=== PATIENT | female | born 1970 | race Caucasian/White ===

== ENCOUNTER 2017-02-04 06:32 | Day surgery (SDC) | payer BC ==
[~2017-02-04 06:32] MED LIST: Dexamethasone 4 MG/ML 5 ML MDV ONE; HYDROmorphone 1 MG/ML Syringe ONE; Ketorolac 30 MG/ML SDV ONE; Lactated Ringers 1,000 ML ONE; Lidocaine 1% 4 ML ONE; Midazolam 1 MG/ML 2 ML SDV ONE; Ondansetron 4 MG/2 ML SDV ONE; Propofol 200 MG/20 ML SDV ONE; Rocuronium 50 MG/5 ML Vial ONE; ceFAZolin 1 GM Vial ONE; fentaNYL 250 MCG/5 ML SDV ONE
[2017-02-04] MEDS ORDERED: Sodium Chloride 0.9% 10 ML Syringe FLUSH PRN (07:00)
[2017-02-04] MEDS ORDERED: Lidocaine 1%/Sod Bicarbonate in NS 8.4% 1 ML Syringe PRN (07:00)
[2017-02-04] MEDS ORDERED: Sodium Chloride 0.9% 50 ML SDV ONE (07:03)
[2017-02-04] MEDS ORDERED: Lidocaine 1% with EPINEPHrine 1:100,000 20 ML MDV ONE (07:03)
[2017-02-04] MEDS: Lactated Ringers 1,000 ML IV SCH ×2 (07:10→12:55)
--- NOTE | 2017-02-04 07:27 | PCM.PREANE ---
Preanesthetic Assessment - Anesthesia/Transfusion/Family Hx Anesthesia History: Prior Anesthesia Without Reaction Family History of Anesthesia Reaction: No Transfusion History: No Prior Transfusion(s) Intubation History: Unknown - Review of Systems General: No Symptoms, Fatigue Pulmonary: No Symptoms (history of asthma not treatment needed for 5-6 years.) Cardiovascular: No Symptoms (History of HTN), Lightheadedness (postural changes / exertion.) Gastrointestinal: No Symptoms (GERD/history of chron's disease), Decreased Appetite Neurological: No Symptoms, Headache (history of migraines/4/10 headache noted today) Other: Reports: Easy Bruising, Sinus Problem (allergic rhinitis), Neck Pain ( neck tenderness with headache.) - Physical Assessment NPO Status Date: 02/03/17 NPO Status Time: 21:30 Pulse: 102 O2 Sat by Pulse Oximetry: 97 Respiratory Rate: 16 Blood Pressure: 153/90 Temperature: 37.0 C Height: 1.7 m Weight: 108 kg ASA Class: 2 Mental Status: Alert & Oriented x3 Airway Class: Mallampati = 2 Dentition: Reports: Normal Dentition, Broken Tooth/Teeth, Caries Thyro-Mental Finger Breadths: 3 Mouth Opening Finger Breadths: 3 ROM/Head Extension: Full Lungs: Clear to Auscultation, Normal Respiratory Effort Cardiovascular: Regular Rate, Regular Rhythm, No Murmurs - Lab Values: Laboratory Last Values WBC 9.56 K/mm3 (3.98-10.04) 02/02/17 13:25 RBC 4.54 M/mm3 (3.98-5.22) 02/02/17 13:25 Hgb 13.5 gm/L (11.2-15.7) 02/02/17 13:25 Hct 39.7 % (34.1-44.9) 02/02/17 13:25 MCV 87.4 fl (79.4-94.8) 02/02/17 13:25 MCH 29.7 pg (25.6-32.2) 02/02/17 13:25 MCHC 34.0 g/dl (32.2-35.5) 02/02/17 13:25 RDW Std Deviation 39.0 fL (36.4-46.3) 02/02/17 13:25 Plt Count 382 K/mm3 (182-369) H 02/02/17 13:25 MPV 9.8 fl (9.4-12.3) 02/02/17 13:25 Neut % (Auto) 61.6 % (34.0-71.1) 02/02/17 13:25 Lymph % (Auto) 28.9 % (19.3-51.7) 02/02/17 13:25 Jerome % (Auto) 6.6 % (4.7-12.5) 02/02/17 13:25 Eos % (Auto) 1.9 (0.7-5.8) 02/02/17 13:25 Baso % (Auto) 0.7 % (0.1-1.2) 02/02/17 13:25 Neut # (Auto) 5.89 K/mm3 (1.56-6.13) 02/02/17 13:25 Lymph # (Auto) 2.76 K/mm3 (1.18-3.74) 02/02/17 13:25 Jerome # (Auto) 0.63 K/mm3 (0.24-0.36) H 02/02/17 13:25 Eos # (Auto) 0.18 K/mm3 (0.04-0.36) 02/02/17 13:25 Baso # (Auto) 0.07 K/mm3 (0.01-0.08) 02/02/17 13:25 Sodium 136 mEq/L (136-145) 02/02/17 13:25 Potassium 3.9 mEq/L (3.5-5.1) 02/02/17 13:25 Chloride 106 mEq/L (98-107) 02/02/17 13:25 Carbon Dioxide 20 mEq/L (21-32) L 02/02/17 13:25 Anion Gap 13.9 (5-15) 02/02/17 13:25 BUN 9 mg/dL (7-18) 02/02/17 13:25 Creatinine 1.0 mg/dL (0.55-1.02) 02/02/17 13:25 Est Cr Clr Drug Dosing TNP 02/02/17 13:25 Estimated GFR (MDRD) 60 mL/min (>60) 02/02/17 13:25 BUN/Creatinine Ratio 9.0 (14-18) L 02/02/17 13:25 Glucose 99 mg/dL (74-106) 02/02/17 13:25 Calcium 9.1 mg/dL (8.5-10.1) 02/02/17 13:25 Total Bilirubin 0.3 mg/dL (0.2-1.0) 02/02/17 13:25 AST 27 U/L (15-37) 02/02/17 13:25 ALT 32 U/L (14-59) 02/02/17 13:25 Alkaline Phosphatase 79 U/L (46-116) 02/02/17 13:25 Total Protein 7.9 g/dl (6.4-8.2) 02/02/17 13:25 Albumin 3.3 g/dl (3.4-5.0) L 02/02/17 13:25 Globulin 4.6 gm/dL 02/02/17 13:25 Albumin/Globulin Ratio 0.7 (1-2) L 02/02/17 13:25 Urine Color Red (Yellow) H 02/02/17 13:25 Urine Appearance Slt cloudy (Clear) H 02/02/17 13:25 Urine pH 6.0 (5.0-8.0) 02/02/17 13:25 Ur Specific [place] 1.015 (1.005-1.030) 02/02/17 13:25 Urine Protein 2+ (Negative) H 02/02/17 13:25 Urine Glucose (UA) Negative (Negative) 02/02/17 13:25 Urine Ketones Negative (Negative) 02/02/17 13:25 Urine Occult Blood 3+ (Negative) H 02/02/17 13:25 Urine Nitrite Negative (Negative) 02/02/17 13:25 Urine Bilirubin 1+ (Negative) H 02/02/17 13:25 Urine Urobilinogen 0.2 (0.2-1.0) 02/02/17 13:25 Ur Leukocyte Esterase Trace (Negative) H 02/02/17 13:25 Urine HCG, Qual Negative (NEGATIVE) 02/02/17 13:25 Blood Type A POSITIVE 02/02/17 13:25 Gel Antibody Screen Negative 02/02/17 13:25 Above labs reviewed and noted and within acceptable ranges to proceed with scheduled procedure. - Allergies Allergies/Adverse Reactions: Allergies Allergy/AdvReac Type Severity Reaction Status Date / Time levofloxacin [From Levaquin] Allergy Rash Verified 02/03/17 14:10 promethazine [From Phenergan] Allergy Hives Verified 02/03/17 14:10 shellfish derived Allergy Cannot Verified 02/03/17 14:10 Remember - Anesthesia Plan Pre-Op Medication Ordered: None - Acknowledgements Anesthesia Type Planned: General Anesthesia Pt an Appropriate Candidate for the Planned Anesthesia: Yes Alternatives and Risks of Anesthesia Discussed w Pt/Guardian: Yes Pt/Guardian Understands and Agrees with Anesthesia Plan: Yes PreAnesthesia Questionnaire HEENT History: Reports: Allergic Rhinitis, Impaired Vision Cardiovascular History: Reports: Hypertension Respiratory History: Reports: Asthma Gastrointestinal History: Reports: GERD, Other (See Below) Other Gastrointestinal History: crohn's disease Genitourinary History: Reports: None LOOM CONTROL CHAIN BUILDER History: Reports: Polycystic Ovaries, , Spontaneous , Other (See Below) Other OB/BYN History: pelvic pain, abnormal uterine bleeding, dysmenorrhea, menorrhagia, spontaneous vaginal delivery Neurological History: Reports: Headaches, Chronic, Migraines Psychiatric History: Reports: None Endocrine/Metabolic History: Reports: None Hematologic History: Reports: Anemia Immunologic History: Reports: None Oncologic (Cancer) History: Reports: None Dermatologic History: Reports: Other (See Below) Other Dermatologic History: acne, lymphadenectomy - Past Surgical History HEENT Surgical History: Reports: Tonsillectomy Cardiovascular Surgical History: Reports: None Respiratory Surgical History: Reports: None GI Surgical History: Reports: None, Appendectomy, Small Bowel Female Surgical History: Reports: Breast Reduction Male Surgical History: Reports: None Endocrine Surgical History: Reports: None Neurological Surgical History: Reports: None Musculoskeletal Surgical History: Reports: Other (See Below) Other Musculoskeletal Surgeries/Procedures:: ankle surgery, knee surgery Oncologic Surgical History: Reports: None - SUBSTANCE USE Smoking Status *Q: Never Smoker Recreational Drug Use History: No - HOME MEDS Home Medications: Home Meds Adalimumab [Humira Pen Crohn-Uc-Hs Starter] 40 mg SQ Q14D 02/03/17 [History] Multivitamin with Minerals [Multiple Vitamin] 1 tab PO DAILY 02/03/17 [History] Pantoprazole Sodium [Protonix] 40 mg PO DAILY 02/03/17 [History] Topiramate [Topamax] 100 mg PO DAILY 02/03/17 [History] - CURRENT (IN HOUSE) MEDS Current Meds: Current Medications Lactated Ringer's (Ringers, Lactated) 1,000 mls @ 125 mls/hr IV ASDIRECTED KYLE Stop: 02/04/17 23:00 Lidocaine/Sodium Bicarbonate (Buffered Lidocaine 1% In Ns 8.4%) 0.25 ml .XX ONETIME PRN PRN Reason: Prior to IV Start Stop: 02/04/17 18:00 Sodium Chloride (Saline Flush) 10 ml FLUSH ASDIRECTED PRN PRN Reason: Keep Vein Open Stop: 02/04/17 18:00 Discontinued Medications Cefazolin Sodium (Ancef) Confirm Administered Dose 2 gm .ROUTE .STK-MED ONE Stop: 02/04/17 06:29 Dexamethasone (Dexamethasone) Confirm Administered Dose 20 mg .ROUTE .STK-MED ONE Stop: 02/04/17 06:29 Fentanyl (Sublimaze) Confirm Administered Dose 250 mcg .ROUTE .STK-MED ONE Stop: 02/04/17 06:29 Hydromorphone HCl (Dilaudid) Confirm Administered Dose 1 mg .ROUTE .STK-MED ONE Stop: 02/04/17 06:30 Lidocaine HCl (Xylocaine-Mpf 1%) Confirm Administered Dose 4 mls @ as directed .ROUTE .STK-MED ONE Stop: 02/04/17 06:29 Lactated Ringer's (Ringers, Lactated) Confirm Administered Dose 1,000 mls @ as directed .ROUTE .STK-MED ONE Stop: 02/04/17 06:29 Ketorolac Tromethamine (Toradol) Confirm Administered Dose 30 mg .ROUTE .STK- MED ONE Stop: 02/04/17 06:29 Lidocaine/Epinephrine (Xylocaine 1% With Epinephrine 1:100,000) Confirm Administered Dose 20 ml .ROUTE .STK-MED ONE Stop: 02/04/17 07:04 Midazolam HCl (Versed 1 Mg/Ml) Confirm Administered Dose 2 mg .ROUTE .STK-MED ONE Stop: 02/04/17 06:29 Ondansetron HCl (Zofran) Confirm Administered Dose 4 mg .ROUTE .STK-MED ONE Stop: 02/04/17 06:29 Propofol (Diprivan 20 Ml) Confirm Administered Dose 200 mg .ROUTE .STK-MED ONE Stop: 02/04/17 06:29 Rocuronium [place] (Zemuron) Confirm Administered Dose 50 mg .ROUTE .STK-MED ONE Stop: 12/13/17 06:29 Sodium Chloride (Normal Saline) Confirm Administered Dose 50 ml .ROUTE .[facility]-MED ONE Stop: 02/04/17 07:04
[2017-02-04] MEDS ORDERED: Scopolamine 1.5 MG Transdermal Patch TRDERM ONE (07:45)
[2017-02-04] MEDS ORDERED: HYDROmorphone 0.5 MG/0.5 ML Syringe IVPUSH PRN (09:47)
[2017-02-04] MEDS ORDERED: fentaNYL 100 MCG/2 ML SDV IVPUSH PRN (09:47)
[2017-02-04] MEDS ORDERED: Midazolam 1 MG/ML 2 ML SDV IVPUSH PRN (09:47)
[2017-02-04] MEDS ORDERED: Metoclopramide 10 MG/2 ML SDV IV PRN (09:47)
[2017-02-04] MEDS ORDERED: diphenhydrAMINE 50 MG/ML SDV IVPUSH PRN (09:47)
[2017-02-04] MEDS ORDERED: ePHEDrine 50 MG/ML SDV IVPUSH PRN (09:47)
[2017-02-04] MEDS ORDERED: Ondansetron 4 MG/2 ML SDV IVPUSH PRN ×2 (09:47→10:35)
[2017-02-04] MEDS ORDERED: Propofol 200 MG/20 ML SDV ONE (09:49)
[2017-02-04] MEDS ORDERED: HYDROmorphone 1 MG/ML Syringe ONE (10:06)
[2017-02-04] MEDS ORDERED: Neostigmine Methylsulfate 1 MG/ML 5 ML Syringe ONE (10:10)
[2017-02-04] MEDS ORDERED: Labetalol 100 MG/20 ML MDV ONE (10:13)
[2017-02-04] MEDS ORDERED: Acetaminophen/oxyCODONE 325-5 MG Tab PO PRN (10:35)
--- NOTE | 2017-02-04 10:40 | PCM.OPNOTE ---
- General Post-Op/Procedure Note Date of Surgery/Procedure: 02/04/17 Operative Procedure(s): Total vaginal hysterectomy with bilateral salpingectomy Findings: Uterus is upper limits normal size. Bilateral ovaries had benign appearing cysts present within. Fallopian tubes were unremarkable. Pre Op Diagnosis: 1. Menorrhagia. 2. Dysmenorrhea. 3. Irregular menses. Post-Op Diagnosis: Same Anesthesia Technique: General ET Tube Other Anesthesia Type: Lidocaine quarter percent with [id number] mL total Primary Surgeon: Johnny Salcedo Secondary Surgeon: Jutsin Salguero Anesthesia Provider: Leena Amos Glassware Maker Demonstrator: Frankie Russ Reason Glassware Maker Demonstrator Was Necessary: Retraction, patient safety, quality of care. Role of Glassware Maker Demonstrator: Retraction Pathology: Uterus and bilateral fallopian tubes sent in one container Fluid Replacement, Intraop: 1,000 EBL in mLs: 200 Complications: None Condition: Good Free Text/Narrative:: Surgery duration: 41 minutes Procedure: The patient was placed in supine position on the operating table. General endotracheal anesthesia was accomplished. After positioning, and adequate prep and drape, the procedure was then performed. Sterile speculum was placed in the vagina and cervix was visualized. Cervix was injected with lidocaine quarter percent with [id number] mL used. A full circumference incision was made in the cervical epithelium. The bladder was pushed well back off cervix. Posterior cul-de-sac was then entered sharply without problems. Left uterosacral was crossclamped with a Enseal vessel closure system. The left uterosacral and then the right uterosacral ligament pedicles were developed using the Enseal system. The anterior cul-de-sac was then entered without problems and the uterine vasculature, cardinal ligament and broad ligament then developed using Enseal vessel closure system. The uterus was inverted at this time and upper broad ligament fallopian tube pedicles were crossclamped with Caio clamps. Specimen was totally removed. Both these pedicles were then secured with a Caio stitch of #1 Vicryl. Left and right fallopian tube was normal in appearance.. Using Enseal vessel closure system each of the tubes was then removed and sent with the specimen. Both ovaries were removed per patient's desire. The patient was found to be hemostatically intact at this time. A pursestring suture was and placed in the peritoneal cavity externalizing pedicles in case of bleeding. Vaginal cuff was sutured for hemostatic reasons with a running locked suture of 0 Monocryl from the 2 o'clock position to the 10 o'clock position posteriorly. Vaginal cuff was then closed from right to left side with a running locked suture of 0 Monocryl. Patient was returned to supine position and awakened from general endotracheal anesthesia. She tolerated the procedure was then left the operating room in satisfactory condition.
[2017-02-04] MEDS ORDERED: Labetalol 100 MG/20 ML MDV IVPUSH PRN (10:48)
--- NOTE | 2017-02-04 10:48 | PCM.POSTAN ---
POST ANESTHESIA ASSESSMENT - MENTAL STATUS Mental Status: Alert - VITAL SIGNS Pulse Rate: 104 SaO2: 98 Resp Rate: 10 Blood Pressure: 154/90 Temperature: 36.9 C - RESPIRATORY Respiratory Status: Respiratory Rate WNL, Airway Patent, O2 Saturation Stable, Supplemental Oxygen - CARDIOVASCULAR CV Status: Pulse Rate WNL, Blood Pressure Stable - GASTROINTESTINAL GI Status: No Symptoms - POST OP HYDRATION Hydration Status: Adequate & Stable
--- NOTE | 2017-02-04 12:11 | PCM48HPAN ---
Post Anesthesia Note - EVALUATION WITHIN 48HRS OF ANESTHETIC Vital Signs in Normal Range: Yes Patient Participated in Evaluation: Yes Respiratory Function Stable: Yes Airway Patent: Yes Cardiovascular Function Stable: Yes Hydration Status Stable: Yes Pain Control Satisfactory: Yes Nausea and Vomiting Control Satisfactory: Yes Mental Status Recovered: Yes
== END 2017-02-04 15:00 | disposition home or self-care (01) ==
LOC: JD.SDS 06:32
PROVIDERS: ATTEND Obstetrics & Gynecology
DX: N84.0 Polyp of corpus uteri (principal); N80.0 Endometriosis of uterus; R23.4 Changes in skin texture; N83.8 Other noninflammatory disorders of ovary, fallopian tube and broad ligament; I10 Essential (primary) hypertension; K21.9 Gastro-esophageal reflux disease without esophagitis; J45.909 Unspecified asthma, uncomplicated; Z88.1 Allergy status to other antibiotic agents; Z88.8 Allergy status to other drugs, medicaments and biological substances; Z91.013 Allergy to seafood; Z79.899 Other long term (current) drug therapy
CPT/HCPCS: 36415; 58262; 80053; 81003; 81025; 85025; 86850; 86900; 86901; 93005; A9270; J0690; J1100; J1170; J1885; J2250; J2405; J2710; J3010; J7120; 00944; J2704

== ENCOUNTER 2017-10-27 12:10 | Emergency (ER) | payer BC ==
--- NOTE | 2017-10-27 13:18 | EDM.PDOC ---
ED HPI GENERAL MEDICAL PROBLEM - General Chief Complaint: Gastrointestinal Problem Stated Complaint: VOMITING DIARRHEA SOB Time Seen by Provider: 10/27/17 12:25 - History of Present Illness INITIAL COMMENTS - FREE TEXT/NARRATIVE: 47 y F hx of Crohns dz on adalimulab presenting with nausea, vomiting, diarrhea and generally not feeling well. The patient was in [place] taking care of her mother about 3 weeks ago. Apparently the patient's mother was living in a rodent infested trailer, the patient was cleaning it out. Since then the patient has had nausea, vomiting and has been feeling generally unwell. This morning she describes a sensation of not getting air. She denies cough to me. No fevers. She has follow up next week with her PCP. - Related Data Allergies Allergy/AdvReac Type Severity Reaction Status Date / Time clindamycin Allergy Vomiting Verified 10/27/17 12:24 levofloxacin [From Levaquin] Allergy Rash Verified 02/03/17 14:10 promethazine [From Phenergan] Allergy Hives Verified 02/03/17 14:10 shellfish derived Allergy Cannot Verified 02/03/17 14:10 Remember Home Meds: Home Meds Adalimumab [Humira Pen Crohn-Uc-Hs Starter] 40 mg SQ Q14D 02/03/17 [History] Pantoprazole Sodium [Protonix] 40 mg PO DAILY 02/03/17 [History] Past Medical History HEENT History: Reports: Allergic Rhinitis, Impaired Vision Cardiovascular History: Reports: Hypertension Respiratory History: Reports: Asthma Gastrointestinal History: Reports: GERD, Other (See Below) Other Gastrointestinal History: crohn's disease Genitourinary History: Reports: None CLIENT EXPERIENCE MANAGER History: Reports: Polycystic Ovaries, , Spontaneous , Other (See Below) Other CLIENT EXPERIENCE MANAGER History: pelvic pain, abnormal uterine bleeding, dysmenorrhea, menorrhagia, spontaneous vaginal delivery Neurological History: Reports: Headaches, Chronic, Migraines Psychiatric History: Reports: None Endocrine/Metabolic History: Reports: None Hematologic History: Reports: Anemia Immunologic History: Reports: None Oncologic (Cancer) History: Reports: None Dermatologic History: Reports: Other (See Below) Other Dermatologic History: acne, lymphadenectomy - Past Surgical History HEENT Surgical History: Reports: Tonsillectomy Cardiovascular Surgical History: Reports: None Respiratory Surgical History: Reports: None GI Surgical History: Reports: None, Appendectomy, Small Bowel Female Surgical History: Reports: Breast Reduction Endocrine Surgical History: Reports: None Neurological Surgical History: Reports: None Musculoskeletal Surgical History: Reports: Other (See Below) Other Musculoskeletal Surgeries/Procedures:: ankle surgery, knee surgery Oncologic Surgical History: Reports: None Social & Family History - Family History Family Medical History: Noncontributory - Tobacco Use Smoking Status *Q: Never Smoker - Caffeine Use Caffeine Use: Reports: Coffee - Recreational Drug Use Recreational Drug Use: No ED ROS GENERAL - Review of Systems Review Of Systems: See Below Constitutional: Reports: No Symptoms Respiratory: Reports: Shortness of Breath Cardiovascular: Reports: Other (chest pressure) GI/Abdominal: Reports: Abdominal Pain, Nausea Musculoskeletal: Reports: No Symptoms Skin: Reports: No Symptoms Neurological: Reports: No Symptoms Psychiatric: Reports: No Symptoms Hematologic/Lymphatic: Reports: No Symptoms ED EXAM, GI/ABD - Physical Exam Exam: See Below Exam Limited By: No Limitations General Appearance: Alert, No Apparent Distress Nose: Normal Inspection Throat/Mouth: Normal Inspection Head: Atraumatic, Normocephalic Neck: Normal Inspection Respiratory/Chest: No Respiratory Distress, Lungs Clear, Normal Breath Sounds Cardiovascular: Normal Peripheral Pulses, Regular Rate, Rhythm GI/Abdominal Exam: Normal Bowel Sounds, Non-Tender, No Distention Extremities: Normal Inspection, Normal Range of Motion, Non-Tender, Normal Capillary Refill Neurological: Alert, Oriented, CN II-XII Intact, No Motor/Sensory Deficits Psychiatric: Normal Affect, Normal Mood EKG INTERPRETATION EKG Date: 10/27/17 Time: 13:40 Rhythm: NSR Rate (Beats/Min): 83 [place]: Normal P-Wave: Present (Flattened T waves in V5 V6 borderline poor R-wave progression) QRS: Normal ST-T: Normal QT: Normal Course - Vital Signs Last Recorded V/S: Last Vital Signs Temp 36.1 C 10/27/17 12:25 Pulse 99 10/27/17 12:25 Resp 18 10/27/17 12:25 BP 160/103 H 10/27/17 12:25 Pulse Ox 98 10/27/17 12:25 - Orders/Labs/Meds Orders: Active Orders 24 hr Category Date Time Status EKG Documentation Completion [RC] STAT Care 10/27/17 13:12 Active Chest 1V Frontal [CR] Stat Exams 10/27/17 13:12 Taken Labs: Laboratory Tests 10/27/17 10/27/17 10/27/17 Range/Units 13:30 13:30 13:30 WBC 10.40 H (3.98-10.04) K/mm3 RBC 4.86 (3.98-5.22) M/mm3 Hgb 14.5 (11.2-15.7) gm/L Hct 41.9 (34.1-44.9) % MCV 86.2 (79.4-94.8) fl MCH 29.8 (25.6-32.2) pg MCHC 34.6 (32.2-35.5) g/dl RDW Std Deviation 38.6 (36.4-46.3) fL Plt Count 383 H (182-369) K/mm3 MPV 9.8 (9.4-12.3) fl Neutrophils % (Manual) 64 H (40-60) % Band Neutrophils % 0 (0-10) % Lymphocytes % (Manual) 32 (20-40) % Atypical Lymphs % 0 % Monocytes % (Manual) 3 (2-10) % Eosinophils % (Manual) 1 (0.7-5.8) % Basophils % (Manual) 0 L (0.1-1.2) Platelet Estimate Adequate RBC Morph Comment Normal Sodium 138 (136-145) mEq/L Potassium 4.3 (3.5-5.1) mEq/L Chloride 107 (98-107) mEq/L Carbon Dioxide 22 (21-32) mEq/L Anion Gap 13.3 (5-15) BUN 12 (7-18) mg/dL Creatinine 0.8 (0.55-1.02) mg/dL Est Cr Clr Drug Dosing 85.45 mL/min Estimated GFR (MDRD) > 60 (>60) mL/min BUN/Creatinine Ratio 15.0 (14-18) Glucose 100 (74-106) mg/dL Calcium 9.2 (8.5-10.1) mg/dL Total Bilirubin 0.2 (0.2-1.0) mg/dL AST 27 (15-37) U/L ALT 34 (14-59) U/L Alkaline Phosphatase 74 (46-116) U/L Troponin I < 0.017 (0.00-0.056) ng/mL Total Protein 7.8 (6.4-8.2) g/dl Albumin 3.3 L (3.4-5.0) g/dl Globulin 4.5 gm/dL Albumin/Globulin Ratio 0.7 L (1-2) - Re-Assessments/Exams Free Text/Narrative Re-Assessment/Exam: 10/27/17 13:54 47-year-old female with a history of Crohn's on biologic agent presenting with vague symptoms of nausea and some chest pressure/dyspnea and feeling generally unwell for about 2 weeks after being exposed to rodent droppings. On initial exam patient had normal vital signs. Physical exam is unremarkable. Plan as obtain CMP CBC and a chest x-ray as well as EKG. If these are normal I feel this time it safe to discharge patient home she does not appear acutely ill. She does have follow-up with her primary care physician next week. Labs grossly normal, EKG normal. Patient discharged in good condition. Will follow up with PCP next week. Given return precautions, questions answered. Departure - Departure Time of Disposition: 15:52 Disposition: DC/Tfer to [facility] Condition: Good Clinical Impression: A vague feeling of discomfort, Nausea - Discharge Information *PRESCRIPTION DRUG MONITORING PROGRAM REVIEWED*: No *COPY OF PRESCRIPTION DRUG MONITORING REPORT IN PATIENT ROCIO: No Instructions: Nausea, Adult, [id number] Referrals: Alla Varghese MD [Primary Care Provider] - Forms: ED Department Discharge Additional Instructions: You've been seen in the ED today for some vague symptoms of nausea, difficulty breathing and chest pressure. At this time it does not appear there is a severe life threatening cause for your symptoms. It is safe to go home, no further testing is needed today. Please follow up with your PCP next week. If you have new or worsening chest pain, pressure, shortness of breath please return to the nearest ED for re-evaluation. - My Orders Last 24 Hours: My Active Orders 10/27/17 13:12 EKG Documentation Completion [RC] STAT Chest 1V Frontal [CR] Stat - Assessment/Plan Last 24 Hours: My Active Orders 10/27/17 13:12 EKG Documentation Completion [RC] STAT Chest 1V Frontal [CR] Stat
== END 2017-10-27 16:05 | disposition home or self-care (01) ==
LOC: JD.ED 12:10
DX: R11.2 Nausea with vomiting, unspecified (principal); I10 Essential (primary) hypertension; Z88.8 Allergy status to other drugs, medicaments and biological substances; Z91.013 Allergy to seafood; Z79.899 Other long term (current) drug therapy
CPT/HCPCS: 36415; 71045; 80053; 84484; 85007; 85027; 93005; 93010; 99284-25; 99285-25

== ENCOUNTER 2023-05-15 13:32 | Emergency (ER) | payer BC ==
[2023-05-15 14:52] LABS: BASOPHILS ABSOLUTE AUTO 0.1 K/mm3 (0.0-0.2); BASOPHILS PERCENT AUTO 1.2 % (0.0-1.0); EOSINOPHILS ABSOLUTE AUTO 0.4 K/mm3 (0.0-0.4); HEMATOCRIT 40.8 % (37.0-47.0); HEMOGLOBIN 14.4 gm/dl (12.0-16.0); IMMATURE GRAN ABSOLUTE AUTO 0.02 K/mm3 (0.00-0.05); IMMATURE GRAN PERCENT AUTO 0.2 % (0.0-0.4); LYMPHOCYTES ABSOLUTE AUTO 2.8 K/mm3 (1.0-4.8); LYMPHOCYTES PERCENT AUTO 34.7 % (24.0-44.0); MEAN CORPUSCULAR HEMOGLOBIN 30.3 pg (28.0-32.0); MEAN CORPUSCULAR HGB CONC 35.3 g/dl (32.0-36.0); MEAN CORPUSCULAR VOLUME 85.9 fl (83.0-99.0); MONOCYTES ABSOLUTE AUTO 0.6 K/mm3 (0.0-0.8); MONOCYTES PERCENT AUTO 6.9 % (0.0-8.0); NEUTROPHILS ABSOLUTE AUTO 4.2 K/mm3 (1.8-7.7); PLATELET COUNT,PLT 384 K/mm3 (150-400); RED BLOOD CELL COUNT 4.75 M/mm3 (4.10-5.30); WHITE BLOOD CELL COUNT,WBC 8.12 K/mm3 (3.9-11.3)
[2023-05-15] MEDS: Ondansetron 4 MG/2 ML SDV IVPUSH ONE (16:00)
[2023-05-15] MEDS: Sodium Chloride 0.9% 10 ML Syringe FLUSH PRN ×2 (16:00→16:01)
[2023-05-15] MEDS: Lactated Ringers 1,000 ML IV ONE (16:00)
[2023-05-15 16:04] LABS: A/G RATIO 0.8 (1-2); ALBUMIN 3.7 g/dl (3.4-5.0); ANION GAP 14.6 (5-15); BILIRUBIN TOTAL 0.4 mg/dL (0.2-1.0); C-REACTIVE PROTEIN 0.49 mg/dL (<0.30); CALCIUM 9.3 mg/dL (8.5-10.1); EST CRCL DRUG DOSING (CG) 61.61 mL/min; POTASSIUM,K 3.6 mEq/L (3.5-5.1); PROTEIN TOTAL,TP 8.3 g/dl (6.4-8.2)
[2023-05-15] MEDS: Iopamidol 612 MG/ML 100 ML Bottle IVPUSH ONE (16:09)
[2023-05-15] MEDS: predniSONE 20 MG Tab PO STA (16:46)
[2023-05-15] MEDS: Amoxicillin/Clavulanate K 875-125 MG Tab PO ONE (17:22)
== END 2023-05-15 17:28 | disposition home or self-care (01) ==
LOC: JD.ED 13:32
DX: K50.919 Crohn's disease, unspecified, with unspecified complications (principal); K52.9 Noninfective gastroenteritis and colitis, unspecified; I10 Essential (primary) hypertension; K21.9 Gastro-esophageal reflux disease without esophagitis; J45.909 Unspecified asthma, uncomplicated; Z79.899 Other long term (current) drug therapy; Z88.1 Allergy status to other antibiotic agents; Z88.8 Allergy status to other drugs, medicaments and biological substances; Z91.013 Allergy to seafood
CPT/HCPCS: 36415; 74177; 80053; 83690; 85025; 86140; 96361; 96374; 99284; A9270; J2405; J3490; J7120; J7512; Q9967